=== PATIENT | male | born 1960 | race Hispanic/Latino ===

== ENCOUNTER → 2016-11-23 | Outpatient (CLI) | payer OTHER ==
--- NOTE | 2016-11-23 12:23 | Diagnostic Imaging Report ---
PROCEDURE: MRI lumbar spine. TECHNIQUE: Multiplanar, multisequence MRI of the lumbar spine was performed without contrast. INDICATION: Fall. Right leg pain. FINDINGS: There is satisfactory alignment of the lumbar spine. The vertebral body heights are preserved. There is disc desiccation at the lower lumbar spine discs. There is mild marrow signal abnormality around the endplates of L4 and L5 levels. The spinal canal has a relatively narrow AP dimension on a congenital basis with no significant spinal canal stenosis however. T12/L1: There is no disc herniation, no spinal canal or foraminal stenosis. L1/2: There is no disc herniation, no spinal canal or foraminal stenosis. L2/3: There is no disc herniation. There is mild facet hypertrophy. No significant central canal or lateral recess stenosis. No foraminal narrowing. 4 mm perineural cyst in the right neural foramen is seen. L3/4: There is no disc herniation. There is mild facet hypertrophy. There is no significant central canal, lateral recess or foraminal stenosis. L4/5: There is mild to moderate facet arthropathy with associated mild central canal stenosis reducing the AP dimension of the canal to 9.2 mm. This is mainly a congenital related narrow AP dimension of the spinal canal with no significant disc herniation. The lateral recess demonstrate bilateral mild to moderate narrowing abutting the descending L5 nerve roots bilaterally. The foramina demonstrate no significant stenosis. L5/S1: No disc herniation. There is mild to moderate facet arthropathy more on the left side. No central canal stenosis. There is bilateral lateral recess stenosis mild on the right side and moderate to severe on the left side encroaching upon the descending left S1 nerve root. The foramina demonstrate moderate stenosis on the left with a small osteophyte from the left facet joint projecting into the left foramen. The right foramen is patent. 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 There is lateral recess stenosis at L4/5 and L5/S1 levels and also foraminal stenosis on the right side at L5/S1. Dictated by: Dictated on workstation # [id number]
== END ==
LOC: RAD 10:21
PROVIDERS: ATTEND Nurse Practitioner Family
DX: M47.816 Spondylosis without myelopathy or radiculopathy, lumbar region (principal); M48.06 Spinal stenosis, lumbar region
CPT/HCPCS: 72148